=== PATIENT | female | born 1980 | race Caucasian/White ===

== ENCOUNTER → 2024-12-07 | Outpatient (REF) | payer OTHER | LOC: M SFHCWAGY 14:50 | PROVIDERS: ATTEND Obstetrics & Gynecology | DX: Z12.31 Encounter for screening mammogram for malignant neoplasm of breast (principal) ==

== ENCOUNTER → 2024-12-07 | Outpatient (CLI) | payer OTHER | LOC: M WHC 13:52 | PROVIDERS: ATTEND Obstetrics & Gynecology | DX: Z12.31 Encounter for screening mammogram for malignant neoplasm of breast (principal); R92.323 Mammographic fibroglandular density, bilateral breasts; R92.8 Other abnormal and inconclusive findings on diagnostic imaging of breast ==

== ENCOUNTER → 2024-12-24 | Outpatient (CLI) | payer OTHER | LOC: M WHC 08:50 | PROVIDERS: ATTEND Obstetrics & Gynecology | DX: R92.321 Mammographic fibroglandular density, right breast (principal) | CPT/HCPCS: 77065; G0279 ==

== ENCOUNTER → 2025-03-24 | Outpatient (REF) | payer OTHER ==
[2025-03-27 11:42] LABS: HPV APTIMA Not Detected (Not Detected)
== END ==
LOC: M SFHCWAGY 16:25
PROVIDERS: ATTEND Physician Assistant
DX: Z12.4 Encounter for screening for malignant neoplasm of cervix (principal); R87.615 Unsatisfactory cytologic smear of cervix
CPT/HCPCS: 87624; G0123